=== PATIENT | male | born 1990 | race Caucasian/White ===

== ENCOUNTER 2017-04-18 21:56 | Emergency (ER) | payer SELFPAY ==
[~2017-04-18] VITALS: Ht 180.3 cm; Wt 82.1 kg
[~2017-04-18 21:56] MED LIST: CIPR-280 PO; HYDR-4246 PO; NO ROUTINE MEDS
[2017-04-18 21:58] VITALS: Ht 180.3 cm; Wt 82.1 kg
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
--- OUTSIDE RECORDS SUMMARY | 2017-04-18 22:01 | XMS REPORT | Continuity of Care Document ---
Author Author [facility] Organization [facility] Address Unknown Phone Unavailable Allergies Active Description Code Type Severity Reaction Onset Reported/Identified Relationship to Patient Clinical Status Yes No Known Allergies NKMA N/A N/A 12/20/2014 Yes Zoloft NKMA N/A N/A 08/10/2016 Medications Problems Date Dx Coded Attending Type Code Diagnosis Diagnosed By 02/18/2013 Alcon Curiel DDS 784.2 SWELLING IN HEAD NECK Procedures Results Encounters ACCT No. Visit Date/Time Discharge Status Pt. Type Provider Facility Loc./Unit Complaint [id number] 02/18/2013 14:54:00 2012 14:54:00 DIS Outpatient Alcon Curiel DDS [facility]
[2017-04-18] MEDS ORDERED: QUET100T PO (22:14)
[2017-04-18] MEDS ORDERED: IBUP-1547 PO (22:14)
[2017-04-18] MEDS ORDERED: ANTIDEPRESSANT (22:14)
[2017-04-18] MEDS ORDERED: TRAZ-170 PO (22:14)
[2017-04-18] MEDS ORDERED: NAPR220C11 PO (22:14)
[2017-04-18] MEDS ORDERED: ACET-62 PO (22:14)
[2017-04-18] MEDS ORDERED: AMPH30CA PO (22:14)
--- NOTE | 2017-04-18 22:15 | NUR ---
BUYER GRAIN N. NOLD BUYER GRAIN AT BEDSIDE.
--- OUTSIDE RECORDS SUMMARY | 2017-04-18 22:18 | XMS REPORT | Continuity of Care Document ---
Author Author [facility] Organization [facility] Address Unknown Phone Unavailable Allergies Active Description [...] Status Pt. Type Provider Facility Loc./Unit Complaint [id number] 02/18/2013 14:54:00 2012 14:54:00 DIS Outpatient Alcon Curiel DDS [facility]
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
--- NOTE | 2017-04-18 22:50 | NUR ---
CAST REMOVAL CAST TO L LE CUT/REMOVED AT THIS TIME BY Thomas MIKE APRN. SKIN INTACT, HOWEVER MACERATED. POSTERIOR FOOT LIGHTLY CLEANSED AND PLACED TO DRY PRIOR TO CAM WALKER PLACEMENT.
[2017-04-18] MEDS ORDERED: OXYCODONE/APAP 5/325 (Prepack) SENT HOME ONE (23:15)
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
[2017-04-18 23:38] VITALS: BP 124/81; PULSE 98; RESP 12; TEMP 98.3; O2SAT 97
--- NOTE | 2017-04-18 23:38 | NUR ---
DISMISS PT ASSISTED TO PRIVATE VEHICLE VIA WC BY THIS RN.
== END 2017-04-18 23:38 | disposition home or self-care (01) ==
LOC: ED 21:56
DX: S92.002D Unspecified fracture of left calcaneus, subsequent encounter for fracture with routine healing (principal); W17.89XD Other fall from one level to another, subsequent encounter